=== PATIENT | male | born 1950 | race Caucasian/White ===

== ENCOUNTER → 2016-07-04 | Outpatient (CLI) | payer OTHER ==
--- NOTE | 2016-07-04 11:39 | DIAGNOSTIC IMAGING REPORT ---
ULTRASOUND KIDNEYS AND BLADDER CLINICAL HISTORY: Nephrolithiasis. Microscopic hematuria. Urinary hesitancy. COMPARISON STUDY: No priors. TECHNIQUE: Real-time, grayscale, and color flow sonography of the kidneys and bladder is performed. Images are reviewed in the transverse and longitudinal planes. FINDINGS: Kidneys: The kidneys demonstrate mild cortical atrophy and are normal in echotexture. The right kidney measures 11.1 x 5.7 x 6.0 cm and the left kidney measures left 0.5 x 5.1 x 5.2 cm. There is no hydronephrosis. No shadowing renal calculi are identified. There is no sonographic evidence of contour deforming renal mass lesion. No perinephric fluid is identified. Bladder: The bladder is normal in morphology. Minimal intraluminal debris is noted. Bilateral ureteral jets were seen. There is mild median lobe hypertrophy of the prostate gland. IMPRESSION: 1. The kidneys demonstrate mild cortical atrophy and are without hydronephrosis. 2. Minimal intraluminal debris is noted in the bladder. Correlation with urinalysis will be required. 3. There is mild median lobe hypertrophy of the prostate gland. Electronically signed by: Stanley Carson M.D. 07/04/2016 11:37 AM Dictated Date/Time: 07/04/2016 11:36 AM
--- NOTE | 2016-07-04 11:58 | DIAGNOSTIC IMAGING REPORT ---
KUB CLINICAL HISTORY: N40.1 Benign prostatic hypertrophy with urinary [id number] COMPARISON STUDY: No previous studies for comparison. FINDINGS: The soft tissues, psoas shadows, renal outlines and intestinal gas pattern appear normal. There is no evidence for bowel obstruction. No abnormal abdominal calcifications are seen. IMPRESSION: Normal study. Electronically signed by: Tahir Schwartz M.D. 07/04/2016 11:56 AM Dictated Date/Time: 07/04/2016 11:55 AM
== END | disposition home or self-care (01) ==
LOC: C.ULTR 10:53
PROVIDERS: ATTEND Urology
DX: Z00.00 Encounter for general adult medical examination without abnormal findings (principal); R31.29 Other microscopic hematuria; N20.0 Calculus of kidney; R39.11 Hesitancy of micturition; R39.12 Poor urinary stream; N40.0 Benign prostatic hyperplasia without lower urinary tract symptoms